=== PATIENT | female | born 1955 | race Caucasian/White ===

== ENCOUNTER 2018-01-25 06:06 | Inpatient (IN) ==
[~2018-01-25 06:06] MED LIST: Bacitracin 50,000 UNIT, Polymyxin B Sulfate 500,000 UNIT, Sodium Chloride IRRigation 1,... IR ONE
[2018-01-25] MEDS ORDERED: CeFAZolin Syr 2,000MG/20 ML 2,000 MG/20 ML SYRINGE IVPB ONE (06:35)
[2018-01-25] MEDS ORDERED: Albuterol 2.5 MG/3 ML NEBULIZER IH ONE (06:36)
[2018-01-25] MEDS ORDERED: Ringers Solution, Lactated 1,000 ML IVC SCH (06:45)
[2018-01-25] MEDS ORDERED: Lidocaine -MPF 4% 5 ML AMPUL ONE (07:01)
[2018-01-25] MEDS ORDERED: *HR* Succinylcholine 200 MG/10 ML VIAL IVP ONE (07:01)
[2018-01-25] MEDS ORDERED: Dexamethasone 4 MG/ML VIAL ONE (07:01)
[2018-01-25] MEDS ORDERED: *HR* Rocuronium Bromide 50 MG/5 ML VIAL ONE (07:01)
[2018-01-25] MEDS ORDERED: Lidocaine -MPF 2% 2 ML VIAL ONE (07:01)
[2018-01-25] MEDS ORDERED: *HR* Remifentanil 1 MG VIAL IVP ONE ×3 (07:01→10:55)
[2018-01-25] MEDS ORDERED: Ondansetron 4 MG/2 ML VIAL ONE (07:01)
[2018-01-25] MEDS ORDERED: *HR* Midazolam HCl 2 MG/2 ML VIAL ONE (07:02)
[2018-01-25] MEDS ORDERED: *HR* Propofol 200 MG/20 ML VIAL IVP ONE (07:02)
[2018-01-25] MEDS ORDERED: *HR* FentaNYL (PF) 100 MCG/2 ML VIAL ONE ×2 (07:02→12:13)
--- NOTE | 2018-01-25 07:04 | Anesthesia Evaluation PreOp ---
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: Denies Any Significant HX Other Medical History: Denies Any Significant HX Anesthesia History: No Prior Anesthetic Complications, Past Anesthesia Alcohol Use: occasionally Drug use: none Medications and Allergies Acetaminophen w/Cod 300-30 mg [Tylenol w/Codeine #3] 1 each PO Q6HR PRN #14 tablet 02/13/17 [Rx] Allopurinol [Zyloprim 100 MG] 100 mg PO DAILY 02/13/17 [History] Aspirin [Lo-Dose Aspirin EC] 81 mg PO DAILY 02/13/17 [History] Cholecalciferol (D-3) [Vitamin D] 1,000 unit PO DAILY 02/13/17 [History] Lisinopril [Zestril] 20 mg PO BID 02/13/17 [History] Meloxicam [Mobic] 15 mg PO DAILY 02/13/17 [History] Norvasc 10 mg PO DAILY 02/13/17 [History] [place]-3 Fatty Acids [Fish Oil] 1,000 mg PO DAILY 02/13/17 [History] Oxybutynin Chloride [Ditropan Xl] 10 mg PO DAILY 02/13/17 [History] Potassium Chloride [K-Tab ER] 20 meq PO BID 02/13/17 [History] Simvastatin [Zocor] 40 mg PO HS 02/13/17 [History] Tramadol HCl [Ultram] 50 mg PO BID PRN 02/13/17 [History] HYDROcodone/Acet 5/325 mg [[place] 5-325 mg] 1 - 2 tab PO Q6H PRN #10 tab [Rx] Naproxen [Naprosyn] 500 mg PO BID PRN #20 tablet 04/18/17 [Rx] Ondansetron ODT [Zofran ODT] 4 mg SL Q8HR PRN #12 tab.rapdis 04/18/17 [Rx] 3 Allergy/AdvReac Type Severity Reaction Status Date / Time No Known Allergies Allergy Verified 09/24/17 08:59 - Meds/Allergy Pre-op Review Medications Reviewed: Yes Allergies Reviewed: Yes Beta Blockers on Current Med List: No Anesthesia Results - Labs Laboratory Tests 01/18/18 01/18/18 01/18/18 08:20 08:20 08:20 WBC 5.2 Hgb 16.0 H Hct 47.3 H Plt Count 195 PT 11.8 INR 1.0 APTT 31.1 Sodium 139 Potassium 4.2 BUN 10 Creatinine 0.50 L - Imaging EKG: report reviewed (09/24/2017 SINUS RHYTHM NONSPECIFIC T-WAVE ABNORMALITY) Anesthesia Exam O2 Sat Height 1.68 m Height 1.68 m Height 1.68 m Weight 89.358 kg Weight 89.358 kg Weight 89.358 kg O2 Sat by Pulse Oximetry 95 Vital Signs Temp Pulse Resp BP Pulse Ox 97.9 F 85 18 131/83 95 01/25/18 06:24 01/25/18 06:24 01/25/18 06:24 01/25/18 06:24 01/25/18 06:24 Height: 5'6'' Weight: 197 lbs NPO (# of Hours): 8 Pain Scale: 0 Pain Scale Used: Numeric (1 - 10) - HEENT Pupil (Motor): EOMI Mallampati: IV Teeth: Normal Oral Opening: Greater than 3 - OPTICAL EFFECTS LINE UP PERSON LOC: Oriented OPTICAL EFFECTS LINE UP PERSON Motor: Normal RUE, Normal LUE, Normal RLE, Normal LLE, Normal Face OPTICAL EFFECTS LINE UP PERSON Sensory: Normal: RUE, LUE, RLE, LLE, Face - Cardiac Rhythm: Regular Murmur: None - Pulmonary Breath Sounds: bilateral Clear Respiratory Effort: Symmetrical Anesthesia Assess/Plan ASA Score: 2 Modified [place]yth Scale for Level of Consciousness: Cooperative, oriented, and tranquil Anesthetic Plan: General Monitoring Plan: Standard Monitors Recovery Plan: PACU
--- NOTE | 2018-01-25 07:40 | History & Physical Report ---
Date of Encounter: 01/25/18 Time of Encounter: 07:39 24 Hour HP Update - Instructions Instructions: If the History and Physical is less than 30 days old and was completed prior to A.M. admission and or procedure and has NOT been updated on calendar day of procedure please complete this update prior to performing procedure. - Update Patient reports changes in Medical Condition: No Changes in examination, assessment, or condition: No Changes in Medication: No Preop tests/diagnostics Reviewed: Yes Pre-Op MRSA Screen: Negative Surgery Remains Indicated: Yes Consent for Planned Operative Procedure(s) Verified: Yes - Pre-Operative Checklist Preoperative Checklist Indicated: No Prophylactic Antibiotic Ordered: Yes Home Medications Include Beta Terrell: No Beta Terrell Taken Today (Day of Surgery): No Beta Terrell Taken Yesterday (Day Prior to Surgery): No Is VTE Prophylaxis Indicated?: Yes
[2018-01-25] MEDS ORDERED: *HR* PHENYLEPHRINE 1,000 MCG/10 ML SYRINGE IVP ONE (08:30)
[2018-01-25] MEDS ORDERED: *HR* Phenylephrine 10 MG/ML VIAL ONE (09:07)
[2018-01-25] MEDS ORDERED: Ondansetron 4 MG/2 ML VIAL IVP ONE (09:32)
[2018-01-25] MEDS ORDERED: *HR* Promethazine 25 MG/ML VIAL IVP PRN (09:32)
[2018-01-25] MEDS ORDERED: *HR* FentaNYL (PF) 100 MCG/2 ML VIAL IVP PRN (09:32)
[2018-01-25] MEDS ORDERED: MORPHINE SUL Oral CONC 10 MG/0.5 ML ORAL.SYG SL PRN (09:32)
[2018-01-25] MEDS ORDERED: *HR* Labetalol 20 MG/4 ML SYRINGE IVP PRN (09:32)
[2018-01-25] MEDS ORDERED: *HR* OxyCODONE Immed Rel 5 MG TABLET PO PRN (09:32)
[2018-01-25] MEDS ORDERED: Acetaminophen IV 1,000 MG/100 ML INFUS..BTL ONE (09:35)
[2018-01-25] MEDS ORDERED: *HR* Morphine 10 MG/ML VIAL ONE (12:00)
--- NOTE | 2018-01-25 12:21 | Orthopedic Operative Note ---
Date of procedure: 01/25/18 Pre-op diagnosis: Spondylolisthesis, lumbar stenosis Post-op diagnosis: same Operation/Findings: Posterior lumbar interbody fusion L3-L5: The patient successfully underwent general endotracheal anesthesia. The patient was given antibiotics prior to the start of the procedure. Compression boots and stockings were used for deep vein thrombosis prophylaxis. A Whiting catheter was placed. Leads for neuro monitoring were placed on the upper and lower extremities. This included the cranium. The neuro monitoring personnel confirmed there were satisfactory readings prior to the start of the procedure. The patient was turned prone on the Isaias table. The back was prepped and draped in the usual sterile fashion. An incision was was marked and centered over the involved L3, L4, and L5 levels in the mid line. The incision was deepened through the lumbar fascia. Bovie cautery and Waller elevators were used to reflect the paraspinal musculature at the lateral extent of the transverse processes of the involved L3 , L4, and L5 levels. Tasha clamps were placed over the L4 and L5 spinous processes. An intraoperative lateral fluoroscopy graft was obtained. A conversation was held between the surgeon and radiologist and both confirmed we had the correct operative levels. We then placed pedicle screws in standard fashion with the aid of fluoroscopy and anatomic landmarks. Briefly a starter awl was used. A gearshift was subsequently used to enter the airplane pilot crop dusting hole via a transpedicular route into the vertebral body. The airplane pilot crop dusting hole was tapped with an undersized instrument, and subsequently six 6.5 x 40 mm pedicle screws were placed bilaterally at the indicated L3, L4, and L5 levels. The screws were tested with the aid of the neurologic monitoring staff via pedicle screw stimulation. All reading suggested there was no significant cortical wall breech. The screws were also evaluated fluoro- graphically and appeared to be in satisfactory position. We then turned our attention to the decompression portion of the procedure. We removed the supraspinous and interspinous ligaments and subsequently the insertion of the ligamentum flavum on the undersurface of the proximal L4 lamina was dislodged with a curette. We then removed the ligamentum flavum as well as undercut the facets at this L4-L5 level to decompress the lateral recesses. We also performed a L4 laminectomy. After the decompression, which was over and above that which was required to place the interbody graft, the foramen and traversing roots at this L4-L5 level were found to be free and patent. We also took part of the medial facets in order to aid in the decompression. We moved proximally to the L3-4 level and again removed hypertrophied ligamentum flavum, undercut the L3-4 facets, and did a partial L3 laminectomy. Satisfied with the decompression from L3-L5, we then protected the neural elements including the thecal sac and traversing nerve root on the right at L4-L5 with a dural retractor. We made an annulotomy into the L4-L5 disc space and then removed entire disc material using Pituitary instruments. We trialed various size grafts after the endplates were prepared for graft insertion. A 10 x 26 enter body graft fit well within the L4-L5 disc space. We obtained some bone from the right posterior superior iliac spine through us a separate incision and combined with this with the bone which we had saved from the laminectomies of L3 and L4 portion of the procedure. This autograft bone was first placed in the anterior portion of the L4-L5 disc space and additional bone was placed within the interbody graft spacer. We then placed the interbody graft spacer obliquely across the L4-L5 disc space towards the midline while protecting the neural elements with a root retractor. When the graft was found to be in satisfactory position the forgesmith was removed. We then copiously irrigated the wound. We then decorticated the L3, L4, and L5 transverse processes as well as the facet joints of the involved L3-4 and L4-5 levels to aid in the posterolateral fusion. We placed autograft bone in the lateral gutters over these regions. We noted a small durotomy and repair this with a combination of DuraGen and DuraSeal. We evaluated the ear for several minutes and there was no evidence of CSF leak. We then placed rods within the screw heads of the involved L3, L4, and L5 levels and first locked the distal screws and then subsequently locked the proximal screws so as to improve and reduce the spondylolisthesis previously seen. We then closed the wound in layers with 1 Vicryl for the fascia, 2-0 Vicryl. Subcutaneous tissue, and Dermabond was used for skin closure. Sterile dressings were placed over the wound. The patient was turned supine on a hospital bed and extubated. All sponge instruments and needle counts were correct at the end of the procedure. The patient tolerated the procedure well without complications. Complications: Durotomy repaired with DuraGen patch and DuraSeal. Anesthesia: GETA Surgeon: Mohinder Johnson Jr Was there an medicine assistant present: No Estimated blood loss (cc): 300 Specimen: None Condition: stable Disposition: PACU
[2018-01-25] MEDS ORDERED: *HR* LORazepam 0.5 MG TABLET PO PRN (14:13)
[2018-01-25] MEDS ORDERED: Acetaminophen 325 MG TABLET PO PRN (14:13)
[2018-01-25] MEDS ORDERED: Ondansetron 4 MG/2 ML VIAL IVP PRN (14:13)
[2018-01-25] MEDS ORDERED: Naloxone 0.4 MG/ML INJ IVP PRN (14:13)
[2018-01-25] MEDS: Ringers Solution, Lactated 1,000 ML IVC SCH (16:12)
[2018-01-25] MEDS: *HR* OxyCODONE Immed Rel 5 MG TABLET PO PRN (19:00)
[2018-01-25] MEDS: Lisinopril 20 MG TABLET PO SCH (22:00)
[2018-01-26] MEDS: *HR* OxyCODONE Immed Rel 5 MG TABLET PO PRN ×4 (01:25→20:21)
[2018-01-26 02:36] LABS: Basophils % 0.1 %; Hematocrit 34.1 % (35.3-44.9); Hemoglobin 11.6 g/dL (11.5-15.4); Immature Granulocytes % 0.5 % (0-4); Lymphocytes # 0.9 K/mcL (0.6-4.6); Lymphocytes % 10.6 %; Mean Corpuscular Hemoglobin 30.4 pg (28.0-33.3); Mean Corpuscular Volume 89.5 fL (83.0-100.0); Mean Platelet Volume 10.7 fL (9.4-12.4); Monocytes # 0.9 K/mcL (0.0-1.3); Monocytes % 10.3 %; Neutrophils # 6.5 K/mcL (1.6-8.9); Platelet Count 170 K/mcL (140-400); Red Blood Count 3.81 M/mcL (3.82-4.97); Red Cell Distribution Width 13.3 % (11.5-14.5); Segmented Neutrophils % 78.5 %
[2018-01-26 02:54] LABS: BUN/Creatinine Ratio 16 (6-26); Blood Urea Nitrogen 7 mg/dL (8-23); Calcium 8.3 mg/dL (8.6-10.3); Carbon Dioxide 29 mEq/L (23-29); Chloride 105 mEq/L (98-107); Glucose 119 mg/dL (70-105); Osmolality,Calculated 285 (280-300); Potassium 3.8 mEq/L (3.5-5.1); Sodium 138 mEq/L (136-145); eGFR For Non-African Americans > 60 (> 60)
[2018-01-26] MEDS: Ringers Solution, Lactated 1,000 ML IVC SCH (04:03)
[2018-01-26] MEDS: *HR* HYDROcodone/Acet 5/325 mg TABLET PO PRN (04:11)
[2018-01-26] MEDS: Cholecalciferol (D-3) 1,000 UNIT TABLET PO SCH (08:57)
[2018-01-26] MEDS: Aspirin Enteric Coated 81 MG Tablet PO SCH (08:59)
[2018-01-26] MEDS: Lisinopril 20 MG TABLET PO SCH ×2 (09:00→20:22)
[2018-01-26] MEDS: (Omega-3 Fatty Acids [Fish Oil] 1,000 MG) PO SCH (09:00)
[2018-01-26] MEDS ORDERED: risperiDONE 1 MG TABLET PO SCH (09:00)
[2018-01-26] MEDS: amLODIPine 5 MG TABLET PO SCH (12:10)
--- NOTE | 2018-01-26 17:05 | Spine Progress Note ---
Date of Encounter: 01/26/18 Time of Encounter: 17:04 Subjective Principal diagnosis: Spondylolisthesis, lumbar stenosis Interval history: The patient had an uneventful postoperative course. Progressed from intravenous analgesic needs to oral analgesic needs only. Remained neurovascularly intact and mobilized satisfactorily. All intraoperative and/or postoperative radiographic studies were satisfactory. Patient is discharged with plan for rehabilitation and follow-up in 2 weeks post discharge on analgesic medication and patient's home medications. Objective Vital signs: Vital Signs Temp Pulse Resp BP Pulse Ox 01/26/18 10:28 98.5 F 87 16 114/68 98 01/26/18 07:05 98.8 F 93 16 109/71 96 01/26/18 03:31 99.1 F 97 16 112/75 97 01/25/18 22:51 98.4 F 89 16 108/70 94 01/25/18 18:39 98.2 F 98 18 110/83 97 Intake and Output 01/26/18 01/26/18 01/26/18 07:59 15:59 23:59 Intake Total 1000 / 1000 1000 / 1000 Output Total 1100 / 1100 Balance -100 / -100 1000 / 1000 Intake: IV Fluids 1000 / 1000 1000 / 1000 Lactated Ringers 1,000 ML @ 100 1000 / 1000 1000 / 1000 mls/hr IVC .Q10H TOO Rx#: [id number] Output: Catheter 1100 / 1100 - Labs CBC & BMP: 01/26/18 01:54 01/26/18 01:54 Labs: Abnormal lab results RBC 3.81 M/mcL (3.82-4.97) L 01/26/18 01:54 Hct 34.1 % (35.3-44.9) L 01/26/18 01:54 BUN 7 mg/dL (8-23) L 01/26/18 01:54 Creatinine 0.44 mg/dL (0.60-1.20) L 01/26/18 01:54 Glucose 119 mg/dL (70-105) H 01/26/18 01:54 Calcium 8.3 mg/dL (8.6-10.3) L 01/26/18 01:54 Consult Discharge Plan - Plan Referrals: Adeline Thurston MD [Primary Care Provider] -
[2018-01-26] MEDS: risperiDONE 1 MG TABLET PO SCH (20:22)
[2018-01-27] MEDS: *HR* OxyCODONE Immed Rel 5 MG TABLET PO PRN ×5 (00:42→23:58)
[2018-01-27] MEDS: Lisinopril 20 MG TABLET PO SCH ×2 (07:48→20:38)
[2018-01-27] MEDS: amLODIPine 5 MG TABLET PO SCH (07:48)
[2018-01-27] MEDS: Cholecalciferol (D-3) 1,000 UNIT TABLET PO SCH (07:48)
[2018-01-27] MEDS: Aspirin Enteric Coated 81 MG Tablet PO SCH (07:48)
[2018-01-27] MEDS ORDERED: diazePAM 5 MG TABLET PO PRN (08:11)
--- NOTE | 2018-01-27 08:22 | Spine Progress Note ---
Date of Encounter: 01/27/18 Time of Encounter: 08:21 Subjective Principal diagnosis: Spondylolisthesis, lumbar stenosis Interval history: The patient is without complaints. Afebrile vital signs are stable. Incision is clean dry and intact. Neurovascularly intact with regard to bilateral lower extremities. Fires all upper and lower extremity motor groups. Negative straight leg raise. Assessment :stable. Plan mobilize ,continue analgesics, discharge planning. Objective Vital signs: Vital Signs Temp Pulse Resp BP Pulse Ox 01/27/18 06:55 98.2 F 87 16 105/76 95 01/27/18 04:07 98.4 F 93 18 101/66 93 01/26/18 23:25 100.3 F H 108 16 111/77 93 01/26/18 18:59 100.4 F H 108 16 122/66 93 01/26/18 10:28 98.5 F 87 16 114/68 98 Intake and Output 01/26/18 01/27/18 01/27/18 23:59 07:59 15:59 Intake Total 200 / 200 150 / 150 Balance 200 / 200 150 / 150 Intake: Oral 200 / 200 150 / 150 Other: # Voids 1 1 - Labs CBC & BMP: 01/26/18 01:54 01/26/18 01:54 Labs: Abnormal lab results RBC 3.81 M/mcL (3.82-4.97) L 01/26/18 01:54 Hct 34.1 % (35.3-44.9) L 01/26/18 01:54 BUN 7 mg/dL (8-23) L 01/26/18 01:54 Creatinine 0.44 mg/dL (0.60-1.20) L 01/26/18 01:54 Glucose 119 mg/dL (70-105) H 01/26/18 01:54 Calcium 8.3 mg/dL (8.6-10.3) L 01/26/18 01:54 Consult Discharge Plan - Plan Referrals: Adeline Thurston MD [Primary Care Provider] -
[2018-01-27] MEDS: (Omega-3 Fatty Acids [Fish Oil] 1,000 MG) PO SCH (11:01)
[2018-01-27] MEDS: Ringers Solution, Lactated 1,000 ML IVC SCH (11:14)
[2018-01-27] MEDS: risperiDONE 1 MG TABLET PO SCH (20:38)
[2018-01-28] MEDS: *HR* OxyCODONE Immed Rel 5 MG TABLET PO PRN ×2 (03:47→19:24)
[2018-01-28] MEDS: *HR* HYDROcodone/Acet 5/325 mg TABLET PO PRN ×2 (06:52→16:50)
--- NOTE | 2018-01-28 07:37 | Orthopedics Progress Note ---
Date of Encounter: 01/28/18 Time of Encounter: 07:36 Subjective Principal diagnosis: Spondylolisthesis, lumbar stenosis Interval history: The patient is without complaints with the exception of no bowel movements. Positive flatus. Afebrile vital signs are stable. Incision is clean dry and intact. Neurovascularly intact with regard to bilateral lower extremities. Fires all upper and lower extremity motor groups. Negative straight leg raise. Assessment :stable. Plan mobilize ,continue analgesics, discharge planning. Will give mirilax today due to no bowel movements. Likely discharge tomorrow. Objective Vital signs: Vital Signs Temp Pulse Resp BP Pulse Ox 01/28/18 07:01 98 F 77 16 132/73 95 01/28/18 04:10 98.0 F 70 16 128/81 93 01/27/18 23:48 98.3 F 101 16 105/72 93 01/27/18 19:24 98.7 F 111 16 123/72 93 01/27/18 15:10 98.7 F 73 16 104/56 98 01/27/18 09:57 98.5 F 78 16 107/68 97 01/27/18 08:21 95 Intake and Output 01/27/18 01/27/18 01/28/18 15:59 23:59 07:59 Intake Total 200 / 200 200 / 200 Output Total 550 / 550 Balance -550 / -550 200 / 200 200 / 200 Intake: Oral 200 / 200 200 / 200 Output: Urine 550 / 550 Other: # Voids 1 1 - Labs CBC & BMP: 01/26/18 01:54 01/26/18 01:54 Labs: Abnormal lab results RBC 3.81 M/mcL (3.82-4.97) L 01/26/18 01:54 Hct 34.1 % (35.3-44.9) L 01/26/18 01:54 BUN 7 mg/dL (8-23) L 01/26/18 01:54 Creatinine 0.44 mg/dL (0.60-1.20) L 01/26/18 01:54 Glucose 119 mg/dL (70-105) H 01/26/18 01:54 Calcium 8.3 mg/dL (8.6-10.3) L 01/26/18 01:54 - VTE Documentation of Mechanical Device: Intermittent pneumatic compression device Consult Discharge Plan - Plan Referrals: Adeline Thurston MD [Primary Care Provider] -
[2018-01-28] MEDS: amLODIPine 5 MG TABLET PO SCH (07:54)
[2018-01-28] MEDS: Lisinopril 20 MG TABLET PO SCH ×2 (07:55→20:14)
[2018-01-28] MEDS: Aspirin Enteric Coated 81 MG Tablet PO SCH (07:55)
[2018-01-28] MEDS: Cholecalciferol (D-3) 1,000 UNIT TABLET PO SCH (07:55)
[2018-01-28] MEDS: (Omega-3 Fatty Acids [Fish Oil] 1,000 MG) PO SCH (11:27)
[2018-01-28] MEDS: risperiDONE 1 MG TABLET PO SCH (20:15)
[2018-01-29] MEDS: *HR* OxyCODONE Immed Rel 5 MG TABLET PO PRN (02:00)
[2018-01-29] MEDS: (Omega-3 Fatty Acids [Fish Oil] 1,000 MG) PO SCH (07:29)
[2018-01-29] MEDS: Lisinopril 20 MG TABLET PO SCH (07:29)
[2018-01-29] MEDS: amLODIPine 5 MG TABLET PO SCH (07:29)
[2018-01-29] MEDS: Cholecalciferol (D-3) 1,000 UNIT TABLET PO SCH (07:29)
[2018-01-29] MEDS: Aspirin Enteric Coated 81 MG Tablet PO SCH (07:29)
--- NOTE | 2018-01-29 07:54 | Orthopedics Progress Note ---
Date of Encounter: 01/29/18 Time of Encounter: 07:53 Subjective Principal diagnosis: Spondylolisthesis, lumbar stenosis Interval history: Patient was seen this morning doing well without complaints. Afebrile vital signs stable. Operative extremity: Neurovascularly intact Calves nontender Assessment and plan: Continue with postoperative care Discharged today Objective Vital signs: Vital Signs Temp Pulse Resp BP Pulse Ox 01/29/18 07:28 98.4 F 98 18 114/75 94 01/29/18 04:20 98.6 F 94 16 121/88 95 01/29/18 00:07 98.4 F 100 18 123/83 92 01/28/18 20:15 96 01/28/18 19:10 98.4 F 95 16 114/74 96 01/28/18 14:08 98.4 F 73 16 118/76 96 01/28/18 10:02 98.3 F 79 16 129/78 97 Intake and Output 01/28/18 01/28/18 01/29/18 15:59 23:59 07:59 Intake Total 400 / 400 Output Total 500 / 500 Balance -100 / -100 Intake: Oral 400 / 400 Output: Urine 500 / 500 Other: Meal Lunch Percent of Meal Consumed 10% Weight 95 kg Patient Weight 01/29/18 23:59 Weight 95 kg - Labs CBC & BMP: 01/26/18 01:54 01/26/18 01:54 Labs: Abnormal lab results RBC 3.81 M/mcL (3.82-4.97) L 01/26/18 01:54 Hct 34.1 % (35.3-44.9) L 01/26/18 01:54 BUN 7 mg/dL (8-23) L 01/26/18 01:54 Creatinine 0.44 mg/dL (0.60-1.20) L 01/26/18 01:54 Glucose 119 mg/dL (70-105) H 01/26/18 01:54 Calcium 8.3 mg/dL (8.6-10.3) L 01/26/18 01:54 - VTE Documentation of Mechanical Device: Intermittent pneumatic compression device Consult Discharge Plan - Plan Referrals: Adeline Thurston MD [Primary Care Provider] -
[2018-01-29 10:30] VITALS: BP 120/80
--- NOTE | 2018-02-04 13:56 | Discharge Summary ---
- NOTES TO OUTPATIENT PROVIDER Notes to Outpatient Provider: Follow up in spine center in 2 weeks Date of Encounter: 02/04/18 Time of Encounter: 13:53 - Discharge Diagnosis (1) Spondylolisthesis Priority: Primary Status: Chronic Qualifiers: Spinal region: lumbar Qualified Code(s): M43.16 - Spondylolisthesis, lumbar region (2) Lumbar stenosis without neurogenic claudication Priority: Secondary Status: Chronic (3) Lumbar radiculopathy Priority: Secondary Status: Chronic - Hospital Course Hospital course: Ms. Zepeda is a 62 year old female who underwent a lumbar fusion and had an uneventful postoperative course. She progressed from iv to oral analgesics and improved her mobilization. She remained neurovascularly intact with satsifactory postoperative radiographs. Follow up in spine center in 2 weeks. - Time Spent with Patient Total time spent providing and/or coordinating discharge services: - Discharge Medications Home Medications: Amlodipine Besylate 10 mg PO DAILY 02/13/17 [History] Aspirin [Lo-Dose Aspirin EC] 81 mg PO DAILY 02/13/17 [History] Cholecalciferol (D-3) [Vitamin D] 1,000 unit PO DAILY 02/13/17 [History] Lisinopril [Zestril] 20 mg PO BID 02/13/17 [History] Meloxicam [Mobic] 15 mg PO DAILY 02/13/17 [History] Potassium Chloride [K-Tab ER] 20 meq PO BID 02/13/17 [History] Simvastatin [Zocor] 40 mg PO HS 02/13/17 [History] Citalopram Hydrobromide [Citalopram HBr] 40 mg PO DAILY 01/25/18 [History] LORazepam [Ativan] 0.5 mg PO DAILY PRN 01/25/18 [History] [place]-3/Dha/Epa/Fish Oil [Fish Oil 1,000 mg Softgel] 2 cap PO DAILY 01/25/18 [ History] risperiDONE [Risperidone] 0.5 mg PO HS 01/25/18 [History] Allergies/Adverse Reactions: 3 Allergy/AdvReac Type Severity Reaction Status Date / Time No Known Allergies Allergy Verified 01/25/18 14:49 Date of admission: 01/25/18 13:55 Primary care physician: Adeline Thurston Consults: 01/25/18 14:13 Consult to Occupational Therapy [CONS] Routine Comment: Evaluate, develop and implement POC Reason for Consult: Postoperative rehabilitation Does patient have active BEDREST order?: No Is patient medically & hemodynamically stable?: Yes Patient assessed for mobility or mobilized this visit?: No Consult to Physical Therapy [CONS] Routine Comment: Evaluate, develop and implement POC Reason for Consult: Postoperative rehabilitation Does patient have active BEDREST order?: No Is patient medically & hemodynamically stable?: Yes Patient assessed for mobility or mobilized this visit?: No Consult to Spine Navigator [CONS] [CONS] Routine - VTE Documentation of Mechanical Device: Intermittent pneumatic compression device - Impressions ITS Impressions Fluoroscopy 01/25/18 08:25 IMPRESSION: Postoperative changes of fusion and posterior decompression at L3-L5 as above. See separate procedure report for more information. D/ : / 01/25/2018 13:48:32 Alfred Nava MD / [place] Interpreting Provider: Alfred Nava MD Lumbar Spine X-Ray 01/25/18 08:25 IMPRESSION: Postoperative changes of fusion and posterior decompression at L3-L5 as above. See separate procedure report for more information. D/ /25/2018 13:48:32 Alfred Nava MD / [place] Interpreting Provider: Alfred Nava MD Lumbar Spine X-Ray 01/28/18 08:21 IMPRESSION: Postsurgical changes of the lower lumbar spine. D/ / Teagan Gallo Cha, MD / Teagan Gallo Cha, MD Interpreting Provider: Teagan Gallo Cha, MD - Patient Status Disposition: Home, Self-Care Condition: Good Functional capacity at discharge: uses cane/walker - Discharge Instructions Follow Up With: Anupama Cheney PAC [Physician Typewriter Repairer] - 02/08/18 8:45 am Adeline Thurston MD [Primary Care Provider] - 03/29/18 10:30 am Mohinder Johnson Jr, MD [Partnered Physician] - 04/28/18 11:15 am Hermelindo Fajardo DPM [Partnered Physician] - 05/10/18 8:45 am Additional Instructions: Discharge Instructions: Lumbar Please call [facility] ([phone]), your Primary Care Physician, or report to the ER if you have any of the following symptoms: Fever greater that 101.5, increased pain/redness/drainage/odor for your incision site or any other concerning symptoms. ACTIVITY * May Shower * No Tub Baths * No lifting greater than 10 pounds * No Smoking * No Swimming * No off Ground Activities (Running, Climbing, Ladders, Horseback Riding) * No Driving * Wear Back Brace when up walking if lumbar fusion done * Incentive Spirometer 10 times an hour MEDICATIONS: Upon discharge resume your home medications. Take all the medications as prescribed. Take a stool softener if taking narcotic pain medications. Stool softeners are only effective if you drink enough fluids. Drink 6-8 glass of water or fluids a day, unless this is not allowed for another health problem. Despite using stool softeners, if you haven't had a bowel movement in 3 days, please switch to a gentle laxative. Gentle laxatives are sold over the counter. You should have a bowel movement within 24 hours, if not call the office. You will be discharged from the hospital with a prescription for pain medication. You are encouraged to decrease the use of narcotic pain medication as tolerated. Should you require a refill, please call the office. It is best to call 48-72 hours in advance of needing a prescription refill so you don't run out of medication. WOUND CARE: Remove Dressing Tomorrow. Leave incision open to air. Pat dry when you get out of the shower. FOLLOW-UP: Please follow up with your surgeon in the orthopedic clinic in 2 weeks from the day of surgery. References: [employer] ([email or web address]) - Diet and Activity Activity: as per physical therapy Diet: advance to your usual diet
== END 2018-01-29 12:14 | disposition home health service (06) | DRG 304 ==
LOC: SAMDAY 06:06 → 3NENU 13:55
PROVIDERS: ADMIT Orthopaedic Surgery Orthopaedic Surgery of the Spine; ATTEND Orthopaedic Surgery Orthopaedic Surgery of the Spine

== ENCOUNTER 2020-04-19 06:15 | Observation (INO) ==
[2020-04-19] MEDS ORDERED: 0.9 % Sodium Chloride 1,000 ML IVC ONE ×3 (06:34→13:46)
[2020-04-19 06:45] LABS: Basophils # 0.1 K/mcL (0.0-0.2); Basophils % 0.7 %; Eosinophils # 0.3 K/mcL (0.0-0.6); Eosinophils % 3.2 %; Hematocrit 32.5 % (35.3-44.9); Hemoglobin 10.8 g/dL (11.5-15.4); Immature Granulocytes % 0.6 % (0-4); Lymphocytes % 23.7 %; Mean Corpuscular HGB Conc 33.2 g/dL (31.6-35.5); Mean Corpuscular Hemoglobin 32.3 pg (28.0-33.3); Mean Corpuscular Volume 97.3 fL (83.0-100.0); Mean Platelet Volume 10.9 fL (9.4-12.4); Monocytes # 0.7 K/mcL (0.0-1.3); Monocytes % 8.7 %; Neutrophils # 5.4 K/mcL (1.6-8.9); Platelet Count 241 K/mcL (140-400); Red Blood Count 3.34 M/mcL (3.82-4.97); Red Cell Distribution Width 12.9 % (11.5-14.5); Segmented Neutrophils % 63.1 %; White Blood Count 8.5 K/mcL (4.3-11.1)
[2020-04-19 06:52] LABS: INR 1.2; Prothrombin Time 14.2 Seconds (9.4-12.1)
[2020-04-19 06:55] LABS: Activated Partial Thrombo Time 26.3 Seconds (26.0-36.0)
[2020-04-19 06:59] LABS: Alanine Aminotransferase 38 Units/L (7-52); Albumin 3.9 g/dL (3.5-5.7); Albumin/Globulin Ratio 1.4 (1.1-2.2); Alkaline Phosphatase 56 Units/L (34-104); Aspartate Amino Transferase 37 Units/L (13-39); BUN/Creatinine Ratio 29 (6-26); Bilirubin,Direct 0.1 mg/dL (0.0-0.2); Bilirubin,Indirect 0.4 mg/dL (0.0-1.0); Bilirubin,Total 0.5 mg/dL (0.3-1.0); Blood Urea Nitrogen 17 mg/dL (8-23); Calcium 8.8 mg/dL (8.6-10.3); Carbon Dioxide 28 mEq/L (23-29); Chloride 103 mEq/L (98-107); Globulin 2.7 g/dL (2.4-3.5); Glucose 185 mg/dL (70-105); Osmolality,Calculated 292 (280-300); Potassium 3.7 mEq/L (3.5-5.1); Sodium 138 mEq/L (136-145); Total Protein 6.6 g/dL (6.4-8.9); Troponin I < 0.03 ng/mL (< 0.04); eGFR For African Americans > 60 (> 60); eGFR For Non-African Americans > 60 (> 60)
[2020-04-19] MEDS ORDERED: Naloxone 0.4 MG/ML INJ IVP PRN (08:50)
[2020-04-19] MEDS ORDERED: Ondansetron 4 MG/2 ML VIAL IVP PRN (08:50)
[2020-04-19] MEDS ORDERED: *HR* LORazepam 0.5 MG TABLET PO PRN (09:06)
[2020-04-19] MEDS: 0.9 % Sodium Chloride 1,000 ML IVC SCH ×2 (11:52→22:32)
[2020-04-19 15:13] LABS: Hematocrit 25.2 % (35.3-44.9)
[2020-04-19 15:36] LABS: % Iron Saturation 14 % (15-50); Iron 36 mcg/dL (50-170); Transferrin 186 mg/dL (203-362)
[2020-04-19 15:58] LABS: Folate 22.3 ng/mL (3.0-16.0)
[2020-04-19 16:21] LABS: Adenovirus Not Detected (Not Detect); Bordetella Pertussis Not Detected (Not Detect); Chlamydophila pneumoniae Not Detected (Not Detect); Coronavirus 229E Not Detected (Not Detect); Coronavirus HKU1 Not Detected (Not Detect); Coronavirus NL63 Not Detected (Not Detect); Coronavirus OC43 Not Detected (Not Detect); Human Metapneumovirus Not Detected (Not Detect); Human Rhinovirus/Enterovirus Not Detected (Not Detect); Influenza A Subtype 2009 H1 Not Detected (Not Detect); Influenza B Not Detected (Not Detect); Mycoplasma pneumoniae Not Detected (Not Detect); Parainfluenza Virus 1 Not Detected (Not Detect); Parainfluenza Virus 2 Not Detected (Not Detect); Parainfluenza Virus 3 Not Detected (Not Detect); Parainfluenza Virus 4 Not Detected (Not Detect); Respiratory Syncytial Virus Not Detected (Not Detect); SARS-CoV-2 Not Detected (Not Detect)
[2020-04-19] MEDS ORDERED: SODIUM CHLORIDE/NAHCO3/KCL/PEG 4,000 ML SOLN.RECON PO ONE (17:00)
[2020-04-19] MEDS: Pantoprazole 40 MG VIAL IVP SCH (17:23)
[2020-04-19 18:48] LABS: Hematocrit 26.1 % (35.3-44.9); Hemoglobin 8.4 g/dL (11.5-15.4)
[2020-04-19] MEDS: risperiDONE 1 MG TABLET PO SCH (20:11)
[2020-04-19] MEDS ORDERED: risperiDONE 0.25 MG TABLET PO SCH (21:00)
[2020-04-19 22:59] LABS: Hemoglobin 7.8 g/dL (11.5-15.4)
[2020-04-20 03:12] LABS: Hematocrit 24.1 % (35.3-44.9); Hemoglobin 7.9 g/dL (11.5-15.4)
[2020-04-20] MEDS: Pantoprazole 40 MG VIAL IVP SCH ×2 (06:12→16:28)
[2020-04-20 06:31] LABS: Hematocrit 26.9 % (35.3-44.9); Hemoglobin 8.7 g/dL (11.5-15.4); Mean Corpuscular HGB Conc 32.3 g/dL (31.6-35.5); Mean Corpuscular Hemoglobin 31.4 pg (28.0-33.3); Mean Corpuscular Volume 97.1 fL (83.0-100.0); Mean Platelet Volume 10.9 fL (9.4-12.4); Platelet Count 173 K/mcL (140-400); Red Blood Count 2.77 M/mcL (3.82-4.97); Red Cell Distribution Width 13.1 % (11.5-14.5); White Blood Count 5.4 K/mcL (4.3-11.1)
[2020-04-20 06:33] LABS: INR 1.2; Prothrombin Time 14.1 Seconds (9.4-12.1)
[2020-04-20 06:36] LABS: Activated Partial Thrombo Time 26.2 Seconds (26.0-36.0)
[2020-04-20 06:47] LABS: BUN/Creatinine Ratio 12 (6-26); Blood Urea Nitrogen 5 mg/dL (8-23); Carbon Dioxide 28 mEq/L (23-29); Chloride 108 mEq/L (98-107); Glucose 132 mg/dL (70-105); Osmolality,Calculated 295 (280-300); Sodium 143 mEq/L (136-145); eGFR For African Americans > 60 (> 60); eGFR For Non-African Americans > 60 (> 60)
[2020-04-20] MEDS ORDERED: Lidocaine -MPF 2% 2 ML VIAL ONE (13:37)
[2020-04-20] MEDS ORDERED: *HR* Propofol 200 MG/20 ML VIAL IVP ONE (14:09)
[2020-04-20] MEDS: Cholecalciferol (D-3) 1,000 UNIT (25MCG) TABLET PO SCH (15:46)
[2020-04-20] MEDS: methIMAzole 5 MG TABLET PO SCH (15:46)
[2020-04-20] MEDS: risperiDONE 1 MG TABLET PO SCH (21:05)
[2020-04-21 01:33] LABS: Hemoglobin 7.8 g/dL (11.5-15.4); Mean Corpuscular HGB Conc 32.5 g/dL (31.6-35.5); Mean Corpuscular Hemoglobin 31.7 pg (28.0-33.3); Mean Corpuscular Volume 97.6 fL (83.0-100.0); Mean Platelet Volume 10.9 fL (9.4-12.4); Platelet Count 167 K/mcL (140-400); Red Blood Count 2.46 M/mcL (3.82-4.97); Red Cell Distribution Width 13.2 % (11.5-14.5); White Blood Count 5.1 K/mcL (4.3-11.1)
[2020-04-21 01:55] LABS: BUN/Creatinine Ratio 17 (6-26); Blood Urea Nitrogen 7 mg/dL (8-23); Carbon Dioxide 27 mEq/L (23-29); Chloride 107 mEq/L (98-107); Glucose 106 mg/dL (70-105); Osmolality,Calculated 290 (280-300); Sodium 141 mEq/L (136-145); eGFR For African Americans > 60 (> 60); eGFR For Non-African Americans > 60 (> 60)
[2020-04-21] MEDS: Pantoprazole 40 MG VIAL IVP SCH (05:48)
[2020-04-21] MEDS: Cholecalciferol (D-3) 1,000 UNIT (25MCG) TABLET PO SCH (07:57)
[2020-04-21] MEDS: methIMAzole 5 MG TABLET PO SCH (07:57)
[2020-04-21 08:02] LABS: Hematocrit 23.7 % (35.3-44.9); Hemoglobin 7.8 g/dL (11.5-15.4)
[2020-04-21 10:21] VITALS: BP 103/71
== END 2020-04-21 14:04 | disposition home or self-care (01) ==
LOC: 3BNU 06:15 → EMEROOARM 06:15 → SUATTDRO 08:07 → 3BNU 09:56
PROVIDERS: ADMIT Family Medicine; ATTEND Internal Medicine

== ENCOUNTER 2022-02-02 16:47 | Inpatient (IN) ==
[2022-02-02] MEDS ORDERED: 0.9 % Sodium Chloride 1,000 ML IVC ONE ×2 (17:22→17:23)
[2022-02-02 17:45] LABS: Hematocrit 41.5 % (35.3-44.9); Hemoglobin 13.3 g/dL (11.5-15.4); Lymphocytes # 0.2 K/mcL (0.6-4.6); Mean Corpuscular Hemoglobin 26.5 pg (28.0-33.3); Mean Corpuscular Volume 82.8 fL (83.0-100.0); Mean Platelet Volume 10.8 fL (9.4-12.4); Platelet Count 121 K/mcL (140-400); Red Blood Count 5.01 M/mcL (3.82-4.97); Red Cell Distribution Width 17.2 % (11.5-14.5); White Blood Count 5.8 K/mcL (4.3-11.1)
[2022-02-02 18:09] LABS: Albumin 3.9 g/dL (3.5-5.7); Albumin/Globulin Ratio 1.1 (1.1-2.2); Bilirubin,Direct 0.2 mg/dL (0.0-0.2); Bilirubin,Indirect 1.2 mg/dL (0.0-1.0); Bilirubin,Total 1.4 mg/dL (0.3-1.0); Calcium 8.7 mg/dL (8.6-10.3); Globulin 3.4 g/dL (2.4-3.5); Potassium 3.5 mEq/L (3.5-5.1); Total Protein 7.3 g/dL (6.4-8.9); Troponin I 0.07 ng/mL (< 0.04)
[2022-02-02 18:18] LABS: Influenza A PCR Negative (Negative); Influenza B PCR Negative (Negative); Resp. Syncytial Virus PCR Negative (Negative)
[2022-02-02 18:19] LABS: SARS-CoV-2 by PCR (In House) Negative (Negative)
[2022-02-02 18:30] LABS: Monocytes # 0.2 K/mcL (0.0-1.3); Neutrophils # 5.3 K/mcL (1.6-8.9); Platelet Estimate Normal (Normal)
[2022-02-02 19:23] LABS: Bacteria,Urine Few per hpf (None-Few); Bilirubin,Urine Negative (Negative); Blood,Urine Large (Negative); Clarity,Urine Clear (Clear); Color,Urine Light-Yellow (Yellow); Glucose,Urine (UA) Normal (Normal); Ketones,Urine Negative (Negative); Leukocyte Esterase,Urine Small (Negative); Mucus,Urine Few per lpf (None-Few); Nitrite,Urine Negative (Negative); Protein,Urine 70 mg/dL (Neg-Trace); Specific Gravity,Urine 1.007 (1.010-1.025); Squamous Epithelial Cell,Urine Few per hpf (None-Few); Urobilinogen,Urine Normal (Normal); WBC,Urine 15-30 per hpf (0-3)
[2022-02-02] MEDS ORDERED: Melatonin 3 MG TABLET PO PRN (19:27)
[2022-02-02] MEDS ORDERED: Naloxone 0.4 MG/ML INJ IVP PRN (19:27)
[2022-02-02] MEDS ORDERED: Ondansetron ODT 4 MG TAB.RAPDIS SL PRN (19:27)
[2022-02-02] MEDS ORDERED: *HR* HYDROcodone/Acet 5/325 mg TABLET PO PRN (19:27)
[2022-02-02 20:28] LABS: Sodium, Urine 63.1 mEq/L
[2022-02-02 20:33] LABS: Hematocrit 35.9 % (35.3-44.9); Hemoglobin 11.5 g/dL (11.5-15.4); Mean Corpuscular Hemoglobin 26.4 pg (28.0-33.3); Mean Corpuscular Volume 82.3 fL (83.0-100.0); Mean Platelet Volume 10.8 fL (9.4-12.4); Platelet Count 103 K/mcL (140-400); Red Blood Count 4.36 M/mcL (3.82-4.97); Red Cell Distribution Width 16.9 % (11.5-14.5)
[2022-02-02] MEDS ORDERED: Ipratropium/Albuterol Neb 3 ML IH PRN (20:42)
[2022-02-02 20:46] LABS: Calcium 7.7 mg/dL (8.6-10.3); Potassium 2.8 mEq/L (3.5-5.1)
[2022-02-02 20:58] LABS: Magnesium 1.5 mg/dL (1.6-2.6); Phosphorous 1.9 mg/dL (2.7-4.5)
[2022-02-02] MEDS ORDERED: Potassium Chloride Elixir 20 MEQ/15 ML UDC PO ONE (21:03)
[2022-02-02] MEDS ORDERED: cefTRIAXone 1,000 MG in 0.9 % Sodium Chloride Mini Bag 100 ML IVPB SCH (22:00)
[2022-02-02] MEDS ORDERED: 0.9 % Sodium Chloride 1,000 ML IVC SCH (22:15)
[2022-02-02] MEDS ORDERED: Nicotine 14 MG PATCH.TD24 TD PRN (22:50)
[2022-02-02] MEDS: Levalbuterol 1 PUFF INHALER IH SCH (23:16)
[2022-02-02] MEDS ORDERED: 0.9 % Sodium Chloride w KCl 40 MEQ/1,000 ML MLS IVC SCH (23:30)
[2022-02-02] MEDS ORDERED: Azithromycin 250 MG TABLET PO SCH (23:30)
[2022-02-03 05:00] LABS: Basophils % 0.2 %; Hematocrit 35.2 % (35.3-44.9); Hemoglobin 11.3 g/dL (11.5-15.4); Immature Granulocytes % 1.4 % (0-4); Lymphocytes # 0.5 K/mcL (0.6-4.6); Lymphocytes % 4.3 %; Mean Corpuscular HGB Conc 32.1 g/dL (31.6-35.5); Mean Corpuscular Hemoglobin 26.8 pg (28.0-33.3); Mean Corpuscular Volume 83.4 fL (83.0-100.0); Mean Platelet Volume 10.6 fL (9.4-12.4); Monocytes # 0.7 K/mcL (0.0-1.3); Monocytes % 5.6 %; Neutrophils # 10.4 K/mcL (1.6-8.9); Platelet Count 108 K/mcL (140-400); Red Blood Count 4.22 M/mcL (3.82-4.97); Red Cell Distribution Width 17.3 % (11.5-14.5); Segmented Neutrophils % 88.5 %; White Blood Count 11.8 K/mcL (4.3-11.1)
[2022-02-03 05:19] LABS: Albumin 3.3 g/dL (3.5-5.7); Albumin/Globulin Ratio 1.1 (1.1-2.2); Bilirubin,Total 0.8 mg/dL (0.3-1.0); Calcium 7.8 mg/dL (8.6-10.3); Magnesium 2.1 mg/dL (1.6-2.6); Potassium 3.8 mEq/L (3.5-5.1); Total Protein 6.3 g/dL (6.4-8.9)
[2022-02-03] MEDS: *HR* Enoxaparin 40 MG/0.4 ML SYRINGE SQ SCH (06:11)
[2022-02-03 09:54] LABS: A.calcoaceticus-baumannii cplx Not Detected (Not Detect); Bacteroides fragilis by PCR Not Detected (Not Detect); CTX-M ESBL Gene Not Detected (Not Detect); Candida albicans by PCR Not Detected (Not Detect); Candida auris by PCR Not Detected (Not Detect); Candida glabrata by PCR Not Detected (Not Detect); Candida krusei by PCR Not Detected (Not Detect); Candida parapsilosis by PCR Not Detected (Not Detect); Candida tropicalis by PCR Not Detected (Not Detect); Crypto. neoformans/gattii PCR Not Detected (Not Detect); Enterobacter cloacae Cmplx PCR Not Detected (Not Detect); Enterococcus faecalis by PCR Not Detected (Not Detect); Enterococcus faecium by PCR Not Detected (Not Detect); Escherichia coli by PCR DETECTED (Not Detect); IMP Carbapenem-Resist Gene Not Detected (Not Detect); Klebs. pneumoniae group by PCR Not Detected (Not Detect); Klebsiella aerogenes by PCR Not Detected (Not Detect); Klebsiella oxytoca by PCR Not Detected (Not Detect); NDM Carbapenem-Resist Gene Not Detected (Not Detect); OXA-48-like Carbap-Resist Gene Not Detected (Not Detect); Proteus by PCR Not Detected (Not Detect); Pseudomonas aeruginosa by PCR Not Detected (Not Detect); Salmonella species by PCR Not Detected (Not Detect); Serratia marcescens by PCR Not Detected (Not Detect); Staph epidermidis by PCR Not Detected (Not Detect); Staph lugdunensis by PCR Not Detected (Not Detect); Staphylococcus aureus by PCR Not Detected (Not Detect); Staphylococcus by PCR Not Detected (Not Detect); Stenotrophomonas maltophilia Not Detected (Not Detect); Streptococcus agalactiae(B)PCR Not Detected (Not Detect); Streptococcus by PCR Not Detected (Not Detect); Streptococcus pneumoniae PCR Not Detected (Not Detect); Streptococcus pyogenes (A) PCR Not Detected (Not Detect); VIM Carbapenem-Resist Gene Not Detected (Not Detect); blaKPC Carbapenem-Resist Gene Not Detected (Not Detect); mcr-1 Colistin-Resist Gene Not Detected (Not Detect)
[2022-02-03] MEDS: Levalbuterol 1 PUFF INHALER IH SCH ×2 (12:00→22:46)
[2022-02-03] MEDS: cefTRIAXone 2,000 MG in 0.9 % Sodium Chloride 10 ML IVPB SCH (13:21)
[2022-02-03] MEDS: Acetaminophen 325 MG TABLET PO PRN (13:22)
[2022-02-03] MEDS ORDERED: Azithromycin 250 MG TABLET PO ONE (14:00)
[2022-02-03 14:44] LABS: Hepatitis B Surface Antigen Nonreactive (Nonreactive)
[2022-02-03 15:13] LABS: Hepatitis C Virus Antibody Nonreactive (Nonreactive)
[2022-02-03 15:14] LABS: Hepatitis B Core IgM Nonreactive (Nonreactive)
[2022-02-03 15:15] LABS: Hepatitis A Antibody IgM Nonreactive (Nonreactive)
[2022-02-04 03:30] LABS: White Blood Count 7.4 K/mcL (4.3-11.1)
[2022-02-04 03:31] LABS: Basophils % 0.3 %; Eosinophils % 0.3 %; Hematocrit 34.3 % (35.3-44.9); Hemoglobin 10.9 g/dL (11.5-15.4); Immature Granulocytes % 0.4 % (0-4); Lymphocytes # 0.5 K/mcL (0.6-4.6); Mean Corpuscular HGB Conc 31.8 g/dL (31.6-35.5); Mean Corpuscular Hemoglobin 26.2 pg (28.0-33.3); Mean Corpuscular Volume 82.5 fL (83.0-100.0); Monocytes # 0.8 K/mcL (0.0-1.3); Monocytes % 10.4 %; Platelet Count 118 K/mcL (140-400); Red Blood Count 4.16 M/mcL (3.82-4.97); Red Cell Distribution Width 17.2 % (11.5-14.5); Segmented Neutrophils % 81.6 %
[2022-02-04 03:43] LABS: BUN/Creatinine Ratio 16 (6-26); Blood Urea Nitrogen 9 mg/dL (8-23); Calcium 8.2 mg/dL (8.6-10.3); Carbon Dioxide 28 mEq/L (23-29); Chloride 99 mEq/L (98-107); Glucose 122 mg/dL (70-105); Osmolality,Calculated 276 (280-300); Sodium 133 mEq/L (136-145)
[2022-02-04] MEDS: Acetaminophen 325 MG TABLET PO PRN ×2 (05:45→20:08)
[2022-02-04] MEDS: *HR* Enoxaparin 40 MG/0.4 ML SYRINGE SQ SCH (05:45)
[2022-02-04] MEDS ORDERED: Azithromycin 250 MG TABLET PO SCH (09:00)
[2022-02-04] MEDS: Levalbuterol 1 PUFF INHALER IH SCH ×2 (09:47→20:20)
[2022-02-04] MEDS: cefTRIAXone 2,000 MG in 0.9 % Sodium Chloride 10 ML IVPB SCH (13:22)
[2022-02-04] MEDS: Metoprolol XL (24 HR) Succ 50 MG TAB.ER.24H PO SCH (15:46)
[2022-02-04] MEDS ORDERED: *HR* Metoprolol 5 MG/5 ML VIAL IVP ONE (17:40)
[2022-02-04] MEDS ORDERED: Nitroglycerin 0.4 MG TAB.SUBL SL PRN (19:50)
[2022-02-04] MEDS ORDERED: risperiDONE 1 MG TABLET PO SCH (21:00)
[2022-02-05] MEDS: *HR* Enoxaparin 40 MG/0.4 ML SYRINGE SQ SCH (04:54)
[2022-02-05 05:07] LABS: Basophils % 0.3 %; Eosinophils # 0.1 K/mcL (0.0-0.6); Eosinophils % 0.8 %; Hematocrit 37.7 % (35.3-44.9); Hemoglobin 12.1 g/dL (11.5-15.4); Immature Granulocytes % 0.7 % (0-4); Lymphocytes # 0.6 K/mcL (0.6-4.6); Lymphocytes % 9.9 %; Mean Corpuscular HGB Conc 32.1 g/dL (31.6-35.5); Mean Corpuscular Hemoglobin 26.1 pg (28.0-33.3); Mean Corpuscular Volume 81.3 fL (83.0-100.0); Mean Platelet Volume 10.3 fL (9.4-12.4); Monocytes # 0.9 K/mcL (0.0-1.3); Monocytes % 14.5 %; Neutrophils # 4.4 K/mcL (1.6-8.9); Platelet Count 131 K/mcL (140-400); Red Blood Count 4.64 M/mcL (3.82-4.97); Segmented Neutrophils % 73.8 %; White Blood Count 5.9 K/mcL (4.3-11.1)
[2022-02-05] MEDS: Acetaminophen 325 MG TABLET PO PRN ×2 (06:21→12:47)
[2022-02-05 08:04] LABS: BUN/Creatinine Ratio 15 (6-26); Blood Urea Nitrogen 9 mg/dL (8-23); Calcium 8.6 mg/dL (8.6-10.3); Carbon Dioxide 26 mEq/L (23-29); Chloride 96 mEq/L (98-107); Glucose 89 mg/dL (70-105); Osmolality,Calculated 274 (280-300); Sodium 133 mEq/L (136-145)
[2022-02-05] MEDS: Metoprolol XL (24 HR) Succ 50 MG TAB.ER.24H PO SCH (08:46)
[2022-02-05] MEDS ORDERED: Nicotine 14 MG PATCH.TD24 TD SCH (09:00)
[2022-02-05] MEDS ORDERED: Aspirin Enteric Coated 81 MG Tablet PO SCH (09:00)
[2022-02-05] MEDS ORDERED: methIMAzole 5 MG TABLET PO SCH (09:00)
[2022-02-05] MEDS: Levalbuterol 1 PUFF INHALER IH SCH (09:36)
[2022-02-05 09:44] VITALS: O2SAT 96
[2022-02-05] MEDS ORDERED: lisinopriL 10 MG TABLET PO ONE (10:42)
[2022-02-05 11:20] VITALS: BP 149/90; PULSE 75; TEMP 98.3
[2022-02-05] MEDS: cefTRIAXone 2,000 MG in 0.9 % Sodium Chloride 10 ML IVPB SCH (12:47)
[2022-02-06] MEDS ORDERED: lisinopriL 20 MG TABLET PO SCH (09:00)
== END 2022-02-05 18:06 | disposition home or self-care (01) | DRG 871 ==
LOC: SUATTDRO → EMEROOARM 16:47 → 2ANU 16:47 → SUATTDRO 19:47 → 2ANU 20:14 → SUATTDRO 02-03 15:22
PROVIDERS: ADMIT Internal Medicine; ATTEND Registered Nurse